=== PATIENT | female | born 1970 | race Caucasian/White ===

== ENCOUNTER 2023-02-20 00:03 | Inpatient (IN) | payer OTHER, SELFPAY ==
--- NOTE | ~2023-02-20 | XR_ITS ---
EXAMINATION: XR LUMBOSACRAL SPINE CLINICAL INFORMATION: Back pain COMPARISON: None available. TECHNIQUE: Three views of the lumbosacral spine. FINDINGS: No acute radiographic findings. Small ribs noted at L1 level. Lumbar vertebra have normal height and alignment. No fracture or subluxation. Small vertebral osteophytes are noted at multiple levels. There is mild narrowing of disc space at L3-L4 and L5-S1. Sacrum, sacroiliac joints and soft tissues are unremarkable. There is atherosclerotic calcification of the abdominal aorta without aneurysm. XR/XR lumbar spine 2-3V IMPRESSION: * No fracture or malalignment of the lumbar spine. * Mild discovertebral degenerative changes of the lumbar spine.
[2023-02-20 00:12] VITALS: BP 98/75; PULSE 69; RESP 16; TEMP 36.2; O2SAT 97; BMI 33.5
--- NOTE | 2023-02-20 00:43 | ED_ITS ---
HPI - Psych General Chief Complaint: Psychiatric Symptoms Stated Complaint: crisis Time Seen by Provider: 02/20/23 00:15 Source: patient Mode of arrival: EMS Limitations: no limitations History of Present Illness HPI Narrative: patient comes to the emergency room complaining of alcohol intoxication, suicidal ideation, depression. Patient states that she walked earlier today into a gas station requesting a knife so that she could hurt herself. Patient states that she takes her medications as prescribed, states that this year is not working out for her. Patient denies homicidal ideation Related Data Allergies Allergy/AdvReac Type Severity Reaction Status Date / Time No Known Allergies Allergy Verified 02/20/23 00:29 Review of Systems Review of Systems: Constitutional : No Weight loss, No Fever, No Chills, No Night Sweats, No Fatigue, No Malaise ENT/Mouth : No Hearing loss, No Ear Pain, No Nasal Congestion, No Sinus Pain, No Hoarseness, No sore throat, No Rhinorrhea, No Swallowing Difficulty Eyes: No Eye Pain, No Swelling, No Redness, No Foreign Body, No Discharge, No Vision Changes Cardiovascular : No Chest Pain, No SOB, No Dyspnea on Exertion, No Orthopnea, No Edema, No Palpitations Respiratory : No Cough, No Sputum, No Wheezing, No Smoke Exposure, No Dyspnea Gastrointestinal : No Nausea, No Vomiting, No Diarrhea, No Constipation, No abdominal Pain, No Hematochezia, No Melena Genitourinary : no irregular bleeding, No Dysuria, No Urinary Frequency, No Hematuria, No Urinary Incontinence, No Urgency, No Flank Pain, No Urinary Flow Changes, No Hesitancy Musculoskeletal : No joint pain, No Myalgias, No Joint Swelling Skin : No Skin Lesions, No rash Neuro : No Weakness, No Numbness, No Paresthesias, No Loss of Consciousness, No Dizziness, No Headache Psych : No Anxiety/Panic, complaining of depression, SI, no HI, admits to drinking alcohol Heme/Lymph: No Bruising, No Bleeding,No Lymphadenopathy Endocrine : No Polyuria, No Polydipsia, No Temperature Intolerance [facility] Past Medical History Medical History (Updated 02/20/23 @ 01:02 by Saira Bates MD) Depression Social History Social History Alcohol intake: current Alcohol intake frequency: 0-2 drinks per day Smoked in Last 30 Days: No Use of substances other than those prescribed or required for medical reasons: No Patient : No Physical Exam Vital Signs: Vital Signs: Last Vital Signs Temp 97.1 F 02/20/23 00:12 Pulse 69 02/20/23 00:12 Resp 16 02/20/23 00:12 BP 98/75 02/20/23 00:12 Pulse Ox 97 02/20/23 00:12 O2 Del Method Room Air 02/20/23 00:12 BMI result Body Mass Index 33.5 Const: Other: Appearance: Alert. Oriented X3. No acute distress. Eyes: Pupils equal, round and reactive to light. ENT: Pharynx normal. Neck: Normal inspection. Neck supple. No lymph nodes noted. No crepitus CVS: Normal heart rate and rhythm. Pulses normal. Normal S1 and S2 Respiratory: No respiratory distress. Breath sounds normal. No Wheezing. No rales Abdomen: Soft and nontender. No rigidity. No distention. Skin: Skin warm and dry. Normal skin color. Normal skin turgor. Extremities: No lower extremity edema. No Lacerations. No Rash Neuro: Oriented X 3. No motor deficit. No sensory deficit. Moving all extremities. No slurred speech. CN 2 through 12 grossly intact Psych: calm, cooperative, normal affect Course Course Course Narrative: - all of patient's labs pending - care team consult pending - physician observation started at 01:00 - sign-out given to Dr. Macias Medical Decision Making Lab Data 02/20/23 00:27 02/20/23 00:27 Labs: Lab Results 02/20/23 Range/Units 00:27 WBC 7.0 (4.8-10.8) X10*3/uL RBC 3.91 L (4.20-5.50) X10*6/uL Hgb 12.7 (12.0-16.0) g/dl Hct 37.2 (37.0-47.0) % MCV 95.1 (80.0-98.0) fL MCH 32.5 (27.0-33.0) pg MCHC 34.1 (31.0-35.0) g/dl RDW 12.5 (11.0-16.0) % Plt Count 183 (160-400) X10*3/uL MPV 9.9 (9.4-12.3) fL Immature Gran % (Auto) 0.4 (0.0-0.4) % Neut % (Auto) 37.8 L (45-73) % Lymph % (Auto) 46.5 H (20-40) % Finney % (Auto) 8.3 (2-11) % Eos % (Auto) 6.0 H (0-4) % Baso % (Auto) 1.0 (0-2) % Lymph # (Auto) 3.3 (1.2-4.9) X10*3/uL Finney # (Auto) 0.6 (0.1-1.2) X10*3/uL Eos # (Auto) 0.4 (0.0-0.4) X10*3/uL Baso # (Auto) 0.1 (0.0-0.2) X10*3/uL Abs Immat Gran (auto) 0.03 (0.00-0.03) X10*3/uL Absolute Neuts (auto) 2.7 (2.0-8.3) x10*3/uL Absolute Nucleated RBC 0.000 (0.0-0.012) X10*3/uL Nucleated RBC % (auto) 0.0 (0.0-0.2) /100WBC Discharge Plan Discharge Clinical Impression: Depression, Alcohol intoxication Patient Disposition: Still a Patient Interventions: [place]-Suicide Risk Severity Scale Last Done: 02/20/23 00:21
--- NOTE | 2023-02-20 07:43 | PC.NURSE ---
patient appears to remain at rest at present respirations are even and unlabored patient appears in no distress
--- NOTE | 2023-02-20 11:25 | PHA.MEDREC ---
Pharmacy Consult ? Medication Reconciliation Pharmacy has completed the medication reconciliation. spoke with patient and she confirmed her medications. The trazodone was from June of 2021 PRN and was confirmed by [facility]. She reports just starting the Aripiprazole but has not taken it since Wednesday because it made her stomach hurt.
[2023-02-20 11:47] VITALS: BP 115/65; PULSE 96; RESP 20; O2SAT 96
[2023-02-20] MEDS: Propranolol HCL LA 60 MG CAP.SA.24H PO (14:15)
[2023-02-20] MEDS: Omeprazole 20 MG CAPSULE.DR PO (14:15)
[2023-02-20] MEDS: ARIPiprazole 2 MG TABLET PO (14:15)
[2023-02-20] MEDS: Sertraline HCL 100 MG TABLET 200 MG PO (14:15)
[2023-02-20] MEDS: Atorvastatin Calcium 40 MG TABLET PO (14:25)
[2023-02-20 17:13] VITALS: BP 105/48; PULSE 76; RESP 16; O2SAT 97
--- NOTE | 2023-02-20 18:48 | MHC.CARE ---
Pt is adult bedsearch for [facility]
[2023-02-20] MEDS: traZODone HCL 50 MG TABLET PO (19:31)
--- NOTE | 2023-02-20 20:58 | PC.NURSE ---
Another pt in the unit had an outburst that startled the pt. She fell to the ground and broke into tears. after situation was deescalated, pt was still anxious. Trazodone and ativan PRN were administered, pt was given water and a snack. Pt spoke with staff for several minute, then stated she felt a lot better, and went to bed.
--- NOTE | 2023-02-21 | ECG_ITS ---
Test Reason : CHECK QT Blood Pressure : / mmHG Vent. Rate : 053 BPM Atrial Rate : 053 BPM P-R Int : 142 ms QRS Dur : 094 ms QT Int : 460 ms P-R-T Axes : 031 055 055 degrees QTc Int : 431 ms Sinus bradycardia RSR' or QR pattern in V1 suggests right ventricular conduction delay T wave abnormality, consider anterior ischemia Abnormal ECG No previous ECGs available Referred By: Violeta Lozano Electronically Signed By:MICHELLE KELLY MD
[2023-02-21 02:16] VITALS: BP 138/56; PULSE 60; RESP 16; TEMP 36.6; O2SAT 95
[2023-02-21] MEDS: Omeprazole 20 MG CAPSULE.DR PO (06:14)
[2023-02-21] MEDS: ARIPiprazole 2 MG TABLET PO (08:34)
[2023-02-21] MEDS: Sertraline HCL 100 MG TABLET 200 MG PO (08:34)
[2023-02-21] MEDS: Atorvastatin Calcium 40 MG TABLET PO (08:34)
[2023-02-21 08:39] VITALS: BP 127/82; PULSE 57; RESP 16; TEMP 36.8; O2SAT 97
[2023-02-21] MEDS: traZODone HCL 50 MG TABLET PO (18:25)
[2023-02-22 02:57] VITALS: BP 144/78; PULSE 70; RESP 16; TEMP 36.8; O2SAT 96
[2023-02-22] MEDS: Omeprazole 20 MG CAPSULE.DR PO (06:04)
--- NOTE | 2023-02-22 06:06 | PC.NURSE ---
Patient slept through the night, no distress observed/reported, medication compliant, mood labile, behavior non concerning but at time unpredictable, patient's disposition per care team voluntary inpatient bed search, pre-accepted to [facility] today 02/22/23 per care team, patient is asymptomatic of ETOH withdrawal, will continue to monitor.
--- NOTE | 2023-02-22 07:29 | PC.NURSE ---
UP TO BR, MED WITH [facility] FOR ANXIOUSNESS. AWAITING BED ON [facility]
[2023-02-22] MEDS: Sertraline HCL 100 MG TABLET 200 MG PO (09:02)
[2023-02-22] MEDS: ARIPiprazole 2 MG TABLET PO (09:02)
[2023-02-22] MEDS: Propranolol HCL LA 60 MG CAP.SA.24H PO (09:02)
[2023-02-22] MEDS: Atorvastatin Calcium 40 MG TABLET PO (09:02)
--- NOTE | 2023-02-22 12:51 | PC.NURSE ---
REPORT TO ESTEVAN RN ON [facility]
[2023-02-22 15:08] VITALS: BP 123/76; PULSE 69; RESP 18; TEMP 36.7; O2SAT 97
--- NOTE | 2023-02-22 16:26 | PC.ADMIT ---
Patient is a 52 yo , Female referred by the Care team, not previously known. Pt was transported to [facility] ED via EMS due to SI. Signed Conditional Voluntary for admission. Dx Unspecified Depressive Disorder, Unspecified Anxiety Disorder and Alcohol use disorder severe. Patient engages easily, is calm and cooperative with admission process. Pt is alert and oriented, reports mood is depressed, denies SI/HI plan or intent at this time. Patient states I feel like if they were to let me home I would do it again . HX of depression following the of her boss in 2018 and reports that the month of February/March are very difficult . Thoughts are clear and linear with some loose associations, frequently changing topic. Denies AH/VH at this time. No expressed delusions, no overt psychosis. She reports sleeping has been particularly difficult, she uses alcohol and Trazadone, 150 mg. She falls asleep but reports waking up frequently,during the night. Appetite and eating habits are poor, I eat all the wrong things, and Menopause is not helping my weight gain. Tox screen positive for alcohol 02/20/23 , level was 251 upon arrival to ED. Reports last drink Wednesday, daily use, often 6+ drinks. She does report HX of Hypertension for which she takes medication. She denies allergy to medications. Covid screen was negative.
[2023-02-22 18:01] VITALS: BMI 32.1
[2023-02-22 20:30] VITALS: BP 124/61; PULSE 76; RESP 16; TEMP 35.9; O2SAT 93
[2023-02-22] MEDS: traZODone HCL 50 MG TABLET PO ×3 (21:12→22:35)
[2023-02-22] MEDS: diphenhydrAMINE HCL 25 MG CAPSULE 50 MG PO (21:12)
[2023-02-23 08:11] VITALS: BP 129/77; PULSE 60; O2SAT 97
[2023-02-23] MEDS: ARIPiprazole 2 MG TABLET PO (08:14)
[2023-02-23] MEDS: Atorvastatin Calcium 40 MG TABLET PO (08:15)
[2023-02-23] MEDS: Sertraline HCL 100 MG TABLET 200 MG PO (08:15)
[2023-02-23] MEDS: Propranolol HCL LA 60 MG CAP.SA.24H PO (08:15)
[2023-02-23] MEDS: Omeprazole 20 MG CAPSULE.DR PO (08:16)
--- NOTE | 2023-02-23 09:47 | P.HPPS_ITS ---
Chart reviewed case reviewed with nurse practitioner Sujey Valle agree with the diagnosis and treatment plan. Follow-up on fasting blood sugar hemoglobin A1c and calcium would most likely benefit from partial hospital referral HPI Date of Service: 02/23/23 Chief Complaint: crisis Sources of Information: patient interviewed, chart reviewed and crisis/core team assessment reviewed HPI Subjective Notes: Conditional Voluntary Narrative: Patient is a 52 year old woman with hx of MDD who was transported [place] [facility] [place] secondary to walking into a gas station requesting a knife in order to hurt herself d/t increased depressive symptoms. During admission assessment, patient presents as alert, oriented, calm and cooperative. When asked about the incident that brought her to the hospital, Pt states she does not remember going into the gas station and saying that . Patient stated, I know the [place] police brought me in because I was drunk wandering around the streets at night . Patient reports she has been drinking heavily for the past 4-5 years; this was d/t multiple stressors in her life such as her friend passing away, her best friend moving to [place] and her cat dying. She mentioned her most recent stressor was being let go of her job in November without being given a reason. Patient stated, I don't have the confidence to get a new job . Patient reports she drinks daily with her and her house is considered the republican house . Patient reports suicidal ideation with no plan. Patient state d, I'm so depressed. I have no energy. I'll stop being a burden to everyone . She reports swallowing a bunch of Benadryl a month ago but did not go to the hospital after her made her throw it up . Patient reports she is considering starting on Naltrexone and making goals for herself for the future. Case reviewed with Dr. Lundberg. Past Psychiatric History: Reports she tried to overdose a month ago on Benadryl but did not go to the hospital. No history of inpatient hospitalizations. Medical Evaluation Reviewed: Yes [facility] Medical History (Updated 02/23/23 @ 14:25 by Sujey Valle NP) Depression Family History: Grandfather:depression, Aunt: depression Social History: , unemployed, no children. Substance History: Daily ETOH use. Trauma History: unknown Diagnostics Vital Signs (24Hr): Vital Signs - 24 hr 02/22/23 15:08 02/22/23 20:30 02/23/23 08:11 Temperature 98.1 F 96.7 F L Pulse Rate 69 76 60 Respiratory Rate 18 16 Blood Pressure 123/76 124/61 129/77 Pulse Oximetry 97 93 97 Oxygen Delivery Method Room Air Room Air Room Air BMI result Body Mass Index 32.1 Labs 02/20/23 00:27 02/20/23 00:27 Labs: Laboratory Results - last 48 hr 02/22/23 06:07 COVID-19 (ABDOULAYE) Negative COVID-19 Clin Com See Note Imaging Radiology Impressions: ITS Impressions Lumbar Spine X-Ray 02/21/23 08:23 IMPRESSION: * No fracture or malalignment of the lumbar spine. * Mild discovertebral degenerative changes of the lumbar spine. Meds/Allergies Meds Home Medications Medication Instructions Recorded Confirmed Type albuterol sulfate 90 mcg/actuation 2 puff inhalation Q4H PRN 02/20/23 02/20/23 History aerosol inhaler Shortness Of Breath aripiprazole 2 mg tablet 2 mg PO DAILY 02/20/23 02/20/23 History atorvastatin 40 mg tablet 40 mg PO DAILY 02/20/23 02/20/23 History lorazepam 1 mg tablet 0.5 mg PO DAILY PRN Anxiety 02/20/23 02/20/23 History omeprazole 20 mg capsule,delayed 20 mg PO DAILY 02/20/23 02/20/23 History release propranolol 60 mg capsule,24 60 mg PO DAILY 02/20/23 02/20/23 History hr,extended release sertraline 100 mg tablet 200 mg PO DAILY 02/20/23 02/20/23 History trazodone 50 mg tablet 50 mg PO BEDTIME PRN Sleep 02/20/23 02/20/23 History valacyclovir 1 gram tablet 1,000 mg PO BID PRN Cold Sores 02/20/23 02/20/23 History Allergies Allergies Allergy/AdvReac Type Severity Reaction Status Date / Time No Known Allergies Allergy Verified 02/20/23 00:29 Mental Status Exam Mental Status Exam Narrative: Pt is alert and oriented; behavior is cooperative, friendly and calm; patient is not in distress; dressed in casual attire; mood is described as depressed ; eye contact appropriate; Speech is normal rate, volume and prosody and not pressured; no psychomotor agitation/retardation present; thought process is organized and goal directed; Thought content is on tx; otherwise pertinent to relevant topics and without any delusional content, paranoid ideations or grandiosity; denies any HI.Reports suicidal ideation with no plan. There is no evidence of perceptual disturbance. Patients insight and judgment are poor. Assessment & Plan Assessment & Plan (1) MDD (major depressive disorder): Status: Acute Code(s): F32.9 - Major depressive disorder, single episode, unspecified (2) Alcohol abuse: Status: Acute Code(s): F10.10 - Alcohol abuse, uncomplicated Plan Patient is a 52 year old woman with hx of MDD who was transported [place] [facility] via EMS secondary to walking into a gas station requesting a knife in order to hurt herself d/t increased depressive symptoms. Plan: CV 15 minute safety checks CIWA Obtain collateral Refer to PHP Possibly start Naltrexone once pt considers risks/benefits Restart home meds: Abilify 2mg PO daily Ativan 0.5mg PO daily PRN anixety Sertraline 200mg PO daily Trazodone 100mg PO bedtime Start: Prazosin 1mg PO bedtime (nightmares) Pt was educated on the risk of taking her medications with ETOH. Patient educated on: diagnosis, medication risk/benefits, substance abuse and therapeutic strategies Informed Consent: understands Reason for continued inpatient stay Substantial Risk for: harm to self and med/psych decompensation Statement Statement: I have reviewed the history and physical and performed a pertinent examination on my patient. No changes have occurred unless specified. If the History and Physical was not performed prior to admission, the Hospitalist's service will be consulted for completing the admission physical. Time Spent With Patient Time: Total time managing care of this patient today ____ minutes.
[2023-02-23 10:15] LABS: Estimated Average Glucose 105 mg/dL; Hemoglobin A1c % 5.3 %
[2023-02-23 10:34] LABS: Alanine Aminotransferase 41 U/L (0-31); Albumin Level 4.4 g/dL (3.5-5.0); Alkaline Phosphatase 67 U/L (39-117); Anion Gap 18 (12-20); Aspartate Amino Transferase 29 U/L (5-31); Bilirubin Total 0.6 mg/dL (0.0-1.0); Blood Urea Nitrogen 12 mg/dL (9-16); Calcium 10.5 mg/dL (8.4-10.2); Carbon Dioxide 22 mmol/L (22-29); Chloride 103 mmol/L (96-108); Cholesterol 217 mg/dL; Estimated Glomerular Filt Rate 51; Glucose Fasting 128 mg/dL (60-99); HDL Cholesterol 82 mg/dL; LDL Cholesterol Calculated 112 mg/dl; Sodium 139 mmol/L (135-145); Total Protein 7.5 g/dL (6.5-8.0); Triglycerides 117 mg/dL
[2023-02-23 10:59] LABS: Free T4 (Free Thyroxine) 0.97 ng/dL (0.71-1.85); Thyroid Stimulating Hormone 2.03 uIU/mL (0.32-4.0)
[2023-02-23 11:02] LABS: Folate 7.2 ng/mL (> or = 4.0); Vitamin B12 438 pg/mL (200-900)
[2023-02-23 20:15] VITALS: BP 133/90; PULSE 74; RESP 16; TEMP 36.1; O2SAT 93
[2023-02-23] MEDS: traZODone HCL 100 MG TABLET PO (20:23)
[2023-02-23] MEDS: diphenhydrAMINE HCL 25 MG CAPSULE PO (20:23)
[2023-02-23] MEDS: Prazosin HCL 1 MG CAPSULE PO (20:24)
[2023-02-23] MEDS: Acetaminophen 325 MG TABLET 650 MG PO (20:24)
[2023-02-23] MEDS: Lidocaine 4 % Patch ADH..PATCH 1 PATCH TRANSDERMA (21:09)
--- NOTE | 2023-02-24 09:41 | HO.PSYCHPN ---
Subjective Subjective Date of Service: 02/24/23 Reason For Visit: crisis Subjective Notes: Conditional Voluntary Interim History: Reviewed in team and with Dr. Lundberg. Patient reports feeling really sad today but is not sure why. She continues to have suicidal ideation with no plan. Patient stated, I feel like a burden because I'm always upset and crying . CIWA was DC'd; pt denies any withdrawal symptoms and was scoring low on CIWA. Reports she did not have nightmares last night after taking Prazosin. States she would like to attend anger management classes when discharged. Medication Compliance: Yes Side effects from medications: No Attending Groups: Yes Review of Systems Constitutional: Reports as per HPI Eyes: Reports as per HPI Reports as per HPI Cardiovascular: Reports as per HPI Respiratory: Reports as per HPI Gastrointestinal: Reports as per HPI Genitourinary: Reports as per HPI Musculoskeletal: Reports as per HPI Skin/Breast: Reports as per HPI Reports as per HPI Psychiatric: Reports as per HPI Endocrine: Reports as per HPI Hematologic/Lymphatic: Reports as per HPI Allergic/Immunologic: Reports as per HPI Mental Status Exam Mental Status Exam Narrative: Pt is alert and oriented; behavior is cooperative, friendly and calm; patient is not in distress; dressed in casual attire; mood is described as sad ; eye contact appropriate; Speech is normal rate, volume and prosody and not pressured; no psychomotor agitation/retardation present; thought process is organized and goal directed; Thought content is on tx; otherwise pertinent to relevant topics and without any delusional content, paranoid ideations or grandiosity; denies any HI.Reports suicidal ideation with no plan. There is no evidence of perceptual disturbance. Patients insight and judgment are poor. Diagnostics Vital Signs (24Hr): Vital Signs - 24 hr 02/23/23 20:15 Temperature 97 F Pulse Rate 74 Respiratory Rate 16 Blood Pressure 133/90 H Pulse Oximetry 93 Oxygen Delivery Method Room Air BMI result Body Mass Index 32.1 Labs 02/20/23 00:27 02/23/23 09:34 Labs: Laboratory Results - last 48 hr 02/23/23 02/23/23 02/23/23 09:34 09:34 09:34 Sodium 139 Potassium 4.0 Chloride 103 Carbon Dioxide 22 Anion Gap 18 BUN 12 Creatinine 1.12 Estim Creat Clear Calc 79.0 Estimated GFR 51 Fasting Glucose 128 H Estimat Average Glucose 105 Hemoglobin A1c % 5.3 Calcium 10.5 H D Total Bilirubin 0.6 AST 29 ALT 41 H Alkaline Phosphatase 67 Total Protein 7.5 Albumin 4.4 Triglycerides 117 Cholesterol 217 LDL Cholesterol, Calc 112 HDL Cholesterol 82 Vitamin B12 438 Folate 7.2 TSH 2.03 Free T4 0.97 Imaging Radiology Impressions: ITS Impressions Lumbar Spine X-Ray 02/21/23 08:23 IMPRESSION: * No fracture or malalignment of the lumbar spine. * Mild discovertebral degenerative changes of the lumbar spine. Medications Medications Current Medications Acetaminophen (Acetaminophen 325 Mg Tablet) 650 mg PO Q6H PRN PRN Reason: Headache/Pain Mild Scale (1-3) Last Admin: 02/23/23 20:24 Dose: 650 mg Al Hydroxide/Mg Hydroxide (Magnesium Hydrox/Alum Hydrox 30 Ml Oral.Susp) 30 ml PO Q6H PRN PRN Reason: Heartburn/Nausea Albuterol Sulfate (Albuterol Sulfate 90 Mcg 8 Gm Inhaler) 2 puff INHALE Q4H PRN PRN Reason: Shortness Of Breath Aripiprazole (Aripiprazole 2 Mg Tablet) 2 mg PO DAILY HILARIO Last Admin: 02/23/23 08:14 Dose: 2 mg Atorvastatin Calcium (Atorvastatin Calcium 40 Mg Tablet) 40 mg PO DAILY [facility] Last Admin: 02/23/23 08:15 Dose: 40 mg Diphenhydramine HCl (Diphenhydramine Hcl 25 Mg Capsule) 25 mg PO Q6H PRN PRN Reason: Anxiety Last Admin: 02/23/23 20:23 Dose: 25 mg Lidocaine (Lidocaine 4 % Patch Adh..Patch) 1 patch TRANSDERMA DAILY PRN; Protocol PRN Reason: lower back pain Last Admin: 02/23/23 21:09 Dose: 1 patch Lorazepam (Lorazepam 1 Mg Tablet) 1 mg PO Q2H PRN PRN Reason: CIWA 8-11 Lorazepam (Lorazepam 1 Mg Tablet) 2 mg PO Q2H PRN PRN Reason: CIWA 12-15 Lorazepam (Lorazepam 1 Mg Tablet) 3 mg PO Q2H PRN PRN Reason: CIWA > 15; and call Magnesium Hydroxide (Milk Of Magnesia 30 Ml Oral.Susp) 30 ml PO DAILY PRN PRN Reason: Constipation Nicotine Polacrilex (Nicotine Polacrilex 2 Mg Gum) 4 mg BUCCAL Q2H PRN PRN Reason: Nicotine Cravings Omeprazole (Omeprazole 20 Mg Capsule.) 20 mg PO DAILY@0630 [facility] Last Admin: 02/23/23 08:16 Dose: 20 mg Prazosin HCl (Prazosin Hcl 1 Mg Capsule) 1 mg PO BEDTIME HILARIO; Protocol Last Admin: 02/23/23 20:24 Dose: 1 mg Propranolol HCl (Propranolol Hcl La 60 Mg Cap.Sa.24h) 60 mg PO DAILY [facility]; Protocol Last Admin: 02/23/23 08:15 Dose: 60 mg Sertraline HCl (Sertraline Hcl 100 Mg Tablet) 200 mg PO DAILY [facility] Last Admin: 02/23/23 08:15 Dose: 200 mg Trazodone HCl (Trazodone Hcl 100 Mg Tablet) 100 mg PO BEDTIME [facility] Last Admin: 02/23/23 20:23 Dose: 100 mg Allergies Allergies Allergy/AdvReac Type Severity Reaction Status Date / Time No Known Allergies Allergy Verified 02/20/23 00:29 Assessment & Plan Assessment & Plan (1) MDD (major depressive disorder): Status: Acute Code(s): F32.9 - Major depressive disorder, single episode, unspecified (2) Alcohol abuse: Status: Acute Code(s): F10.10 - Alcohol abuse, uncomplicated Plan Patient is a 52 year old woman with hx of MDD who was [place] [facility] [place] secondary to walking into a gas station requesting a knife in order to hurt herself d/t increased depressive symptoms. Plan: CV 15 minute safety checks Obtain collateral Refer to PHP Possibly start Naltrexone once pt considers risks/benefits Pt was educated on the risk of taking her medications with ETOH. Abilify 2mg PO daily Sertraline 200mg PO daily Trazodone 100mg PO bedtime Prazosin 1mg PO bedtime Hydroxyzine 25mg PO Q6H PRN anxiety 02/24: DC'd CIWA; pt denies any withdrawal symptoms and was scoring low on CIWA. Reports she did not have nightmares last night after taking Prazosin. Continues to feel depressed and have suicidal ideation with no plan. Continue with tx plan. Patient educated on: diagnosis, medication risk/benefits, substance abuse and therapeutic strategies Informed Consent: understands Reason for continued inpatient stay Substantial Risk for: harm to self and med/psych decompensation Time Spent With Patient Time: Total time managing care of this patient today _30___ minutes.
[2023-02-24 10:00] VITALS: BP 154/69; PULSE 69; TEMP 36; O2SAT 96
[2023-02-24] MEDS: ARIPiprazole 2 MG TABLET PO (10:38)
[2023-02-24] MEDS: Sertraline HCL 100 MG TABLET 200 MG PO (10:38)
[2023-02-24] MEDS: Propranolol HCL LA 60 MG CAP.SA.24H PO (10:38)
[2023-02-24] MEDS: Atorvastatin Calcium 40 MG TABLET PO (10:39)
[2023-02-24] MEDS: Omeprazole 20 MG CAPSULE.DR PO (10:39)
[2023-02-24] MEDS: Acetaminophen 325 MG TABLET 650 MG PO (15:47)
[2023-02-24 19:51] VITALS: BP 129/73; PULSE 60; RESP 16; TEMP 36.2; O2SAT 95
[2023-02-24] MEDS: Lidocaine 4 % Patch ADH..PATCH 1 PATCH TRANSDERMA (20:06)
[2023-02-24] MEDS: Prazosin HCL 1 MG CAPSULE PO (20:08)
[2023-02-24] MEDS: traZODone HCL 100 MG TABLET PO (20:08)
[2023-02-24] MEDS: hydrOXYzine HCL 25 MG TABLET PO (20:45)
[2023-02-25] MEDS: Omeprazole 20 MG CAPSULE.DR PO (09:06)
[2023-02-25] MEDS: Sertraline HCL 100 MG TABLET 200 MG PO (09:06)
[2023-02-25] MEDS: Propranolol HCL LA 60 MG CAP.SA.24H PO (09:07)
[2023-02-25] MEDS: ARIPiprazole 2 MG TABLET PO (09:07)
[2023-02-25] MEDS: Atorvastatin Calcium 40 MG TABLET PO (09:17)
[2023-02-25 10:16] VITALS: BP 142/80; PULSE 88; RESP 16; TEMP 36.6; O2SAT 98
--- NOTE | 2023-02-25 10:31 | HO.PSYCHPN ---
Subjective Subjective Date of Service: 02/25/23 Reason For Visit: crisis Interim History: Reviewed in team and with Dr. Lundberg. Patient presents brighter than yesterday. Patient stated, I woke up feeling pretty good . Pt continues to minimize drinking and believes it's not that big of a problem . Patient reports she plans on exercising and eating better when I go home . Patient states she would like to attend the PHP program at [facility] once discharged. Pt denies SI and stated I don't think I would act on it at home; I'm feeling more stable . Patient reports she would like to stay until Wednesday because she is still feeling uneasy. Medication Compliance: Yes Side effects from medications: No Attending Groups: Yes Review of Systems Constitutional: Reports as per HPI Eyes: Reports as per HPI Reports as per HPI Cardiovascular: Reports as per HPI Respiratory: Reports as per HPI Gastrointestinal: Reports as per HPI Genitourinary: Reports as per HPI Musculoskeletal: Reports as per HPI Skin/Breast: Reports as per HPI Reports as per HPI Psychiatric: Reports as per HPI Endocrine: Reports as per HPI Hematologic/Lymphatic: Reports as per HPI Allergic/Immunologic: Reports as per HPI Mental Status Exam Mental Status Exam Narrative: Pt is alert and oriented; behavior is cooperative, friendly and calm; patient is not in distress; dressed in casual attire; mood is described as good ; eye contact appropriate; Speech is normal rate, volume and prosody and not pressured; no psychomotor agitation/retardation present; thought process is organized and goal directed; Thought content is on tx; otherwise pertinent to relevant topics and without any delusional content, paranoid ideations or grandiosity; denies any HI/SI. There is no evidence of perceptual disturbance. Patients insight and judgment are poor but improving. Diagnostics Vital Signs (24Hr): Vital Signs - 24 hr 02/24/23 19:51 02/25/23 10:16 Temperature 97.1 F 97.9 F Pulse Rate 60 88 Respiratory Rate 16 16 Blood Pressure 129/73 142/80 H Pulse Oximetry 95 98 Oxygen Delivery Method Room Air Room Air BMI result Body Mass Index 32.1 Labs 02/20/23 00:27 02/23/23 09:34 Labs: Laboratory Results - last 48 hr 02/23/23 02/23/23 09:34 09:34 Sodium 139 Potassium 4.0 Chloride 103 Carbon Dioxide 22 Anion Gap 18 BUN 12 Creatinine 1.12 Estim Creat Clear Calc 79.0 Estimated GFR 51 Fasting Glucose 128 H Calcium 10.5 H D Total Bilirubin 0.6 AST 29 ALT 41 H Alkaline Phosphatase 67 Total Protein 7.5 Albumin 4.4 Triglycerides 117 Cholesterol 217 LDL Cholesterol, Calc 112 HDL Cholesterol 82 Vitamin B12 438 Folate 7.2 TSH 2.03 Free T4 0.97 Imaging Radiology Impressions: ITS Impressions Lumbar Spine X-Ray 02/21/23 08:23 IMPRESSION: * No fracture or malalignment of the lumbar spine. * Mild discovertebral degenerative changes of the lumbar spine. Medications Medications Current Medications Acetaminophen (Acetaminophen 325 Mg Tablet) 650 mg PO Q6H PRN PRN Reason: Headache/Pain Mild Scale (1-3) Last Admin: 02/24/23 15:47 Dose: 650 mg Al Hydroxide/Mg Hydroxide (Magnesium Hydrox/Alum Hydrox 30 Ml Oral.Susp) 30 ml PO Q6H PRN PRN Reason: Heartburn/Nausea Albuterol Sulfate (Albuterol Sulfate 90 Mcg 8 Gm Inhaler) 2 puff INHALE Q4H PRN PRN Reason: Shortness Of Breath Aripiprazole (Aripiprazole 2 Mg Tablet) 2 mg PO DAILY [facility] Last Admin: 02/25/23 09:07 Dose: 2 mg Atorvastatin Calcium (Atorvastatin Calcium 40 Mg Tablet) 40 mg PO DAILY [facility] Last Admin: 02/25/23 09:17 Dose: 40 mg Hydroxyzine HCl (Hydroxyzine Hcl 25 Mg Tablet) 25 mg PO Q6H PRN PRN Reason: Anxiety Last Admin: 02/24/23 20:45 Dose: 25 mg Lidocaine (Lidocaine 4 % Patch Adh..Patch) 1 patch TRANSDERMA DAILY PRN; Protocol PRN Reason: lower back pain Last Admin: 02/24/23 20:06 Dose: 1 patch Magnesium Hydroxide (Milk Of Magnesia 30 Ml Oral.Susp) 30 ml PO DAILY PRN PRN Reason: Constipation Nicotine Polacrilex (Nicotine Polacrilex 2 Mg Gum) 4 mg BUCCAL Q2H PRN PRN Reason: Nicotine Cravings Omeprazole (Omeprazole 20 Mg Capsule.Dr) 20 mg PO DAILY@0630 [facility] Last Admin: 02/25/23 09:06 Dose: 20 mg Prazosin HCl (Prazosin Hcl 1 Mg Capsule) 1 mg PO BEDTIME [facility]; Protocol Last Admin: 02/24/23 20:08 Dose: 1 mg Propranolol HCl (Propranolol Hcl La 60 Mg Cap.Sa.24h) 60 mg PO DAILY [facility]; Protocol Last Admin: 02/25/23 09:07 Dose: 60 mg Sertraline HCl (Sertraline Hcl 100 Mg Tablet) 200 mg PO DAILY [facility] Last Admin: 02/25/23 09:06 Dose: 200 mg Trazodone HCl (Trazodone Hcl 100 Mg Tablet) 100 mg PO BEDTIME [facility] Last Admin: 02/24/23 20:08 Dose: 100 mg Allergies Allergies Allergy/AdvReac Type Severity Reaction Status Date / Time No Known Allergies Allergy Verified 02/20/23 00:29 Assessment & Plan Assessment & Plan (1) MDD (major depressive disorder): Status: Acute Code(s): F32.9 - Major depressive disorder, single episode, unspecified (2) Alcohol abuse: Status: Acute Code(s): F10.10 - Alcohol abuse, uncomplicated Plan Patient is a 52 year old woman with hx of MDD who was transported to [facility] via EMS secondary to walking into a gas station requesting a knife in order to hurt herself d/t increased depressive symptoms. Plan: CV 15 minute safety checks Obtain collateral Refer to PHP Possibly start Naltrexone once pt considers risks/benefits Pt was educated on the risk of taking her medications with ETOH. Abilify 2mg PO daily Sertraline 200mg PO daily Trazodone 100mg PO bedtime Prazosin 1mg PO bedtime Hydroxyzine 25mg PO Q6H PRN anxiety 02/24: DC'd CIWA; pt denies any withdrawal symptoms and was scoring low on CIWA. Reports she did not have nightmares last night after taking Prazosin. Continues to feel depressed and have suicidal ideation with no plan. Continue with tx plan. 02/25: Patient presents brighter than yesterday. Pt continues to minimize drinking and believes it's not that big of a problem .Would like to attend the PHP program at [facility] once discharged. Pt denies SI and stated I don't think I would act on it at home; I'm feeling more stable . Patient reports she would like to stay until Wednesday because she is still feeling uneasy. Continue with current tx plan. Patient educated on: diagnosis, medication risk/benefits, substance abuse and therapeutic strategies Informed Consent: understands Reason for continued inpatient stay Substantial Risk for: med/psych decompensation Time Spent With Patient Time: Total time managing care of this patient today _30___ minutes.
[2023-02-25] MEDS: Acetaminophen 325 MG TABLET 650 MG PO ×2 (13:56→20:35)
[2023-02-25 13:59] VITALS: BMI 32.2
[2023-02-25 20:30] VITALS: BP 120/68; PULSE 64; RESP 18; TEMP 36.6; O2SAT 94
[2023-02-25] MEDS: traZODone HCL 100 MG TABLET PO (20:35)
[2023-02-25] MEDS: Prazosin HCL 1 MG CAPSULE PO (20:35)
[2023-02-25] MEDS: Lidocaine 4 % Patch ADH..PATCH 1 PATCH TRANSDERMA (20:38)
[2023-02-26 06:00] VITALS: BP 142/88; PULSE 61; RESP 16; TEMP 36.6; O2SAT 96
[2023-02-26] MEDS: Omeprazole 20 MG CAPSULE.DR PO (07:02)
[2023-02-26] MEDS: ARIPiprazole 2 MG TABLET PO (09:04)
[2023-02-26] MEDS: Sertraline HCL 100 MG TABLET 200 MG PO (09:04)
[2023-02-26] MEDS: Atorvastatin Calcium 40 MG TABLET PO (09:04)
[2023-02-26] MEDS: Propranolol HCL LA 60 MG CAP.SA.24H PO (09:04)
--- NOTE | 2023-02-26 10:34 | PM.PSYDC ---
DS: Providers Provider Date of Service: 02/26/23 Date of admission: 02/22/23 14:32 Date of discharge: 02/26/23 Primary care physician: Unknown Physician Admitting clinician: Sujey Valle Attending physician on admission: Harshil Lundberg Attending physician on discharge: Harshil Lundberg Discharging clinician: Sujey Valle DS: Diagnosis Discharge Diagnosis (1) MDD (major depressive disorder): Status: Acute (2) Alcohol abuse: Status: Acute DS: Medications Discharge Medications Home Medications: Home Medications Medication Instructions Recorded Confirmed albuterol sulfate 90 mcg/actuation 2 puff inhalation Q4H PRN 02/20/23 02/20/23 aerosol inhaler Shortness Of Breath aripiprazole 2 mg tablet 2 mg PO DAILY 02/20/23 02/20/23 atorvastatin 40 mg tablet 40 mg PO DAILY 02/20/23 02/20/23 omeprazole 20 mg capsule,delayed 20 mg PO DAILY 02/20/23 02/20/23 release propranolol 60 mg capsule,24 60 mg PO DAILY 02/20/23 02/20/23 hr,extended release sertraline 100 mg tablet 200 mg PO DAILY 02/20/23 02/20/23 trazodone 50 mg tablet 50 mg PO BEDTIME PRN Sleep 02/20/23 02/20/23 valacyclovir 1 gram tablet 1,000 mg PO BID PRN Cold Sores 02/20/23 02/20/23 Previous Rx's Medication Instructions Recorded prazosin 1 mg capsule 1 mg PO BEDTIME 30 days #30 caps 02/26/23 Mental Status Exam Mental Status Exam Narrative: Pt is alert and oriented; behavior is cooperative, friendly and calm; patient is not in distress; dressed in casual attire; mood is described as good ; eye contact appropriate; Speech is normal rate, volume and prosody and not pressured; no psychomotor agitation/retardation present; thought process is organized and goal directed; Thought content is on discharge; otherwise pertinent to relevant topics and without any delusional content, paranoid ideations or grandiosity; denies any SI/HI. There is no evidence of perceptual disturbance. Patients insight and judgment are fair. Data Data Completed and Pending Completed studies during hospitalization [Text1]: 02/20/23 02/20/23 02/20/23 00:27 00:27 11:13 WBC 7.0 RBC 3.91 L Hgb 12.7 Hct 37.2 MCV 95.1 MCH 32.5 MCHC 34.1 RDW 12.5 Plt Count 183 MPV 9.9 Immature Gran % (Auto) 0.4 Neut % (Auto) 37.8 L Lymph % (Auto) 46.5 H [place] % (Auto) 8.3 Eos % (Auto) 6.0 H Baso % (Auto) 1.0 Lymph # (Auto) 3.3 [place] # (Auto) 0.6 Eos # (Auto) 0.4 Baso # (Auto) 0.1 Abs Immat Gran (auto) 0.03 Absolute Neuts (auto) 2.7 Absolute Nucleated RBC 0.000 Nucleated RBC % (auto) 0.0 Sodium 137 Potassium 4.4 Chloride 104 Carbon Dioxide 20 L Anion Gap 17 BUN 13 Creatinine 1.03 Estim Creat Clear Calc 87.7 Estimated GFR 56 Random Glucose 95 Fasting Glucose Estimat Average Glucose Hemoglobin A1c % Calcium 9.8 Total Bilirubin 0.6 AST 32 H ALT 39 H Alkaline Phosphatase 69 Total Protein 7.4 Albumin 4.3 Triglycerides Cholesterol LDL Cholesterol, Calc HDL Cholesterol Vitamin B12 Folate TSH Free T4 Urine Color Yellow Urine Appearance Hazy Urine pH 6.0 Ur Specific [place] 1.020 Urine Protein Negative Urine Glucose (UA) Negative Urine Ketones Negative Urine Blood Negative Urine Nitrite Negative Ur Leukocyte Esterase Negative Urine Test Urine Opiates Screen Urine Fentanyl Screen Ur Barbiturates Screen Ur Phencyclidine Scrn Ur Amphetamines Screen U Benzodiazepines Scrn Urine Cocaine Screen U Marijuana (THC) Screen Ethyl Alcohol 251 COVID-19 ([facility]) COVID-19 Clin Com 02/20/23 02/20/23 02/22/23 11:13 11:13 06:07 WBC RBC Hgb Hct MCV MCH MCHC RDW Plt Count MPV Immature Gran % (Auto) Neut % (Auto) Lymph % (Auto) [place] % (Auto) Eos % (Auto) Baso % (Auto) Lymph # (Auto) [place] # (Auto) Eos # (Auto) Baso # (Auto) Abs Immat Gran (auto) Absolute Neuts (auto) Absolute Nucleated RBC Nucleated RBC % (auto) Sodium Potassium Chloride Carbon Dioxide Anion Gap BUN Creatinine Estim Creat Clear Calc Estimated GFR Random Glucose Fasting Glucose Estimat Average Glucose Hemoglobin A1c % Calcium Total Bilirubin AST ALT Alkaline Phosphatase Total Protein Albumin Triglycerides Cholesterol LDL Cholesterol, Calc HDL Cholesterol Vitamin B12 Folate TSH Free T4 Urine Color Urine Appearance Urine pH Ur Specific [place] Urine Protein Urine Glucose (UA) Urine Ketones Urine Blood Urine Nitrite Ur Leukocyte Esterase Urine Test NEGATIVE Urine Opiates Screen Not Detected Urine Fentanyl Screen Not Detected Ur Barbiturates Screen Not Detected Ur Phencyclidine Scrn Not Detected Ur Amphetamines Screen Not Detected U Benzodiazepines Scrn Not Detected Urine Cocaine Screen Not Detected U Marijuana (THC) Screen Not Detected Ethyl Alcohol COVID-19 ([facility]) Negative COVID-19 Clin Com See Note 02/23/23 02/23/23 02/23/23 09:34 09:34 09:34 WBC RBC Hgb Hct MCV MCH MCHC RDW Plt Count MPV Immature Gran % (Auto) Neut % (Auto) Lymph % (Auto) [place] % (Auto) Eos % (Auto) Baso % (Auto) Lymph # (Auto) [place] # (Auto) Eos # (Auto) Baso # (Auto) Abs Immat Gran (auto) Absolute Neuts (auto) Absolute Nucleated RBC Nucleated RBC % (auto) Sodium 139 Potassium 4.0 Chloride 103 Carbon Dioxide 22 Anion Gap 18 BUN 12 Creatinine 1.12 Estim Creat Clear Calc 79.0 Estimated GFR 51 Random Glucose Fasting Glucose 128 H Estimat Average Glucose 105 Hemoglobin A1c % 5.3 Calcium 10.5 H D Total Bilirubin 0.6 AST 29 ALT 41 H Alkaline Phosphatase 67 Total Protein 7.5 Albumin 4.4 Triglycerides 117 Cholesterol 217 LDL Cholesterol, Calc 112 HDL Cholesterol 82 Vitamin B12 438 Folate 7.2 TSH 2.03 Free T4 0.97 Urine Color Urine Appearance Urine pH Ur Specific [place] Urine Protein Urine Glucose (UA) Urine Ketones Urine Blood Urine Nitrite Ur Leukocyte Esterase Urine Test Urine Opiates Screen Urine Fentanyl Screen Ur Barbiturates Screen Ur Phencyclidine Scrn Ur Amphetamines Screen U Benzodiazepines Scrn Urine Cocaine Screen U Marijuana (THC) Screen Ethyl Alcohol COVID-19 ([facility]) COVID-19 Clin Com Imaging Diagnostic Imaging Impressions Lumbar Spine X-Ray 02/21/23 08:23 IMPRESSION: * No fracture or malalignment of the lumbar spine. * Mild discovertebral degenerative changes of the lumbar spine. DS: Summary Hospital Course Hospital Course: Patient is a 52 year old woman with hx of MDD who was transported to [facility] via EMS secondary to walking into a gas station requesting a knife in order to hurt herself d/t increased depressive symptoms. During admission assessment, patient presents as alert, oriented, calm and cooperative. When asked about the incident that brought her to the hospital, Pt states she does not remember going into the gas station and saying that . Patient stated, I know the [place] police brought me in because I was drunk wandering around the streets at night . Patient reports she has been drinking heavily for the past 4-5 years; this was d/t multiple stressors in her life such as her friend passing away, her best friend moving to [place] and her cat dying. She mentioned her most recent stressor was being let go of her job in November without being given a reason. Patient stated, I don't have the confidence to get a new job . Patient reports she drinks daily with her and her house is considered the [place] party house . Patient reports suicidal ideation with no plan. Patient stated, I'm so depressed. I have no energy. I'll stop being a burden to everyone . She reports swallowing a bunch of Benadryl a month ago but did not go to the hospital after her made her throw it up . Patient reports she is considering starting on Naltrexone and making goals for herself for the future. Patient was restarted on her home medications. Patient reports having nightmares and was started on Prazosin. Patient reports she did not have nightmares after taking Prazosin. Patients mood improved during admission. Pt continues to minimize drinking and believes it's not that big of a problem .Pt denies SI and stated I'm feeling more stable . Patient plans on attending PHP at [facility]; referral placed. Patient plans on following up with outpatient providers. Time spent discussing smoking cessation with patient: 3 to 10 minutes Status at Discharge Cognitive/behavioral status at discharge: Patient was interviewed prior to discharge and found to be fully oriented and without any SI or HI. Patient has insight and demonstrates good judgment in terms of wanting to pursue treatment. Patient is not in imminent risk of harm to self or others and has a safety plan that includes presenting to the closest ER or calling 911 if feeling unsafe. Patient has been observed closely by nursing and unit staff throughout admission; patient has not engaged in any behaviors that suggest dangerousness to self or others and has demonstrated appropriate behaviors and impulse control. Functional status at discharge: independent ambulation Overall status at discharge: patient is back to baseline Time Spent with Patient Time attestation: Total time managing care of this patient today _30___ minutes. Time spent: Less than 30 minutes Discharge Plan Discharge Anticipated Discharge Date/Time: 02/26/23 12:00 Patient Disposition: Home, Self-Care Discharge Diagnosis: MDD, ETOH abuse Referrals: Partial Hospitalization Program (PHP) [Other] - 03/26/23 8:00 am (Your intake appointment will take place in the office) Therapy & Psychiatry [Other] - 1 Week ([facility] staff have been made aware of your discharge date. Please follow up with them regarding after care appointments) Physician,Unknown J [Primary Care Provider] - 1 Week Discharge Medications: New prazosin 1 mg Capsule 1 mg PO BEDTIME 30 Days Qty: 30 0RF Protocol: Hold for SBP< HOLD for SBP < : 90 Continued atorvastatin 40 mg tablet 40 mg PO DAILY valacyclovir 1 gram tablet 1,000 mg PO BID PRN (Reason: Cold Sores) propranolol 60 mg capsule,extended release 24 hr 60 mg PO DAILY sertraline 100 mg tablet 200 mg PO DAILY omeprazole 20 mg capsule,delayed release(DR/EC) 20 mg PO DAILY albuterol sulfate 90 mcg/actuation HFA aerosol inhaler 2 puff inhalation Q4H PRN (Reason: Shortness Of Breath) aripiprazole 2 mg tablet 2 mg PO DAILY trazodone 50 mg Tablet 50 mg PO BEDTIME PRN (Reason: Sleep) Discontinued lorazepam 1 mg tablet 0.5 mg PO DAILY PRN (Reason: Anxiety) Discharge Orders: Discharge Order (Routine); Ordered 02/26/23 Ordered By: Sujey Valle Diet: Regular diet Activity on Discharge: As tolerated Stand Alone Forms: Patient Portal Discharge page, Community Support Care Plan Goals: Maintain mood and safe behaviors Take medications as prescribed Continue to pursue sobriety Practice coping skills Continue with outpatient providers and reach out to them as needed Health Concerns: Mood stability and behaviors Sobriety Plan of Treatment: Follow up with your PCP, psychiatric provider and other outpatient providers regarding above concerns Take medications as prescribed Assessment: Patient was interviewed prior to discharge and found to be fully oriented and without any SI or HI. Patient has insight and demonstrates good judgment in terms of wanting to pursue treatment. Patient is not in imminent risk of harm to self or others and has a safety plan that includes presenting to the closest ER or calling 911 if feeling unsafe. Patient has been observed closely by nursing and unit staff throughout admission; patient has not engaged in any behaviors that suggest dangerousness to self or others and has demonstrated appropriate behaviors and impulse control. Discharge Date/Time: 02/26/23 12:07
== END 2023-02-26 12:07 | disposition home or self-care (01) | DRG 754 ==
LOC: HO.ED 06:37 → HO.PADLT16 02-22 14:35
PROVIDERS: Admitting Provider Psychiatry & Neurology Psychiatry; Emergency Provider Emergency Medicine; Responsible Provider Registered Nurse; Visit Provider Psychiatry & Neurology Psychiatry
DX: F32.9 Major depressive disorder, single episode, unspecified (principal); R45.851 Suicidal ideations; F10.120 Alcohol abuse with intoxication, uncomplicated; Z20.822 Contact with and (suspected) exposure to COVID-19; Y90.8 Blood alcohol level of 240 mg/100 ml or more; Z87.891 Personal history of nicotine dependence; Z79.899 Other long term (current) drug therapy
CPT/HCPCS: 36415; 72100; 80053; 80061; 80307; 81003; 81025; 82607; 82746; 83036; 84439; 84443; 85025; 87635; 93005; 99285; S9485

== ENCOUNTER → 2023-02-21 10:43 | Outpatient (BNV) | payer OTHER, SELFPAY | PROVIDERS: Emergency Provider Emergency Medicine; Visit Provider Internal Medicine Cardiovascular Disease | DX: R00.1 Bradycardia, unspecified (principal) | CPT/HCPCS: 93010 ==

== ENCOUNTER → 2023-02-22 14:32 | Outpatient (BNV) | payer OTHER, SELFPAY | PROVIDERS: Admitting Provider Psychiatry & Neurology Psychiatry; Emergency Provider Emergency Medicine; Responsible Provider Registered Nurse; Visit Provider Registered Nurse | DX: F33.2 Major depressive disorder, recurrent severe without psychotic features (principal); F10.10 Alcohol abuse, uncomplicated | CPT/HCPCS: 90792; 99231; 99232; 99238 ==

== ENCOUNTER 2023-03-27 21:16 | Emergency (ER) | payer OTHER, SELFPAY ==
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
[2023-03-27 21:24] VITALS: BP 141/77; PULSE 97; RESP 16; TEMP 37.2; O2SAT 97; BMI 34.5
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
[2023-03-27 22:27] VITALS: BP 137/69; PULSE 79; RESP 16; O2SAT 99
--- NOTE | 2023-03-28 02:56 | PC.NURSE ---
Reviewed discharge instruction with pt, pt verbalized understanding, pt denies any sob or chest pain. no sign of distress. Notified [facility].
== END 2023-03-28 02:59 | disposition home or self-care (01) ==
PROVIDERS: Emergency Provider Emergency Medicine; PCP Physician Assistant
DX: S22.32XA Fracture of one rib, left side, initial encounter for closed fracture (principal); V43.52XA Car driver injured in collision with other type car in traffic accident, initial encounter; Y93.9 Activity, unspecified; Y92.9 Unspecified place or not applicable; Y99.9 Unspecified external cause status; F10.129 Alcohol abuse with intoxication, unspecified; F41.8 Other specified anxiety disorders
CPT/HCPCS: 70450; 71045; 72125; 93005; 99284

== ENCOUNTER → 2023-03-27 22:11 | Outpatient (BNV) | payer OTHER, SELFPAY | PROVIDERS: Emergency Provider Emergency Medicine; PCP Physician Assistant; Visit Provider Internal Medicine Cardiovascular Disease | DX: R94.31 Abnormal electrocardiogram [ECG] [EKG] (principal) | CPT/HCPCS: 93010 ==